=== PATIENT | male | born 1990 | race Caucasian/White ===

== ENCOUNTER 2023-02-09 03:46 | Emergency (ER) | payer SELFPAY ==
[2023-02-09] MEDS ORDERED: NA CHLORIDE 0.9% 1,000 ML ONE ×2 (04:09→04:15)
[2023-02-09] MEDS ORDERED: MORPHINE 4 MG/ML SYR ONE ×2 (04:14→05:48)
[2023-02-09] MEDS ORDERED: LORazepam 2 MG/ML VIAL ONE (04:14)
[2023-02-09] MEDS ORDERED: ONDANSETRON 4 MG/2 ML VIAL ONE (04:14)
[2023-02-09] MEDS ORDERED: KETOROLAC 30 MG/ML INJ ONE (04:14)
[2023-02-09 04:37] LABS: Hematocrit 46.1 % (39.6-49.0); Lymphocytes % 21.5 % (15.3-44.8); MCV 95.7 fL (80-100); MPV 8.4 fL (7.6-11.3); RBC Red Blood Cell Count 4.82 M/uL (4.33-5.43)
[2023-02-09 04:51] LABS: Albumin 3.9 g/dL (3.4-5.0); Bilirubin Total 0.4 mg/dL (0.2-1.0); Potassium 3.4 mEq/L (3.5-5.1); Protein, Total 7.6 g/dL (6.4-8.2)
[2023-02-09] MEDS ORDERED: METOCLOPRAMIDE 10 MG/2mL INJ ONE (05:48)
[2023-02-09] MEDS ORDERED: NA CHLORIDE 0.9% 50 ML ONE (05:49)
[2023-02-09 05:56] LABS: Barbiturates NEGATIVE (NEGATIVE); Benzodiazepines NEGATIVE (NEGATIVE); Cocaine NEGATIVE (NEGATIVE); METHAMPHETAM NEGATIVE (NEGATIVE); Methadone NEGATIVE (NEGATIVE); Opiates POSITIVE (NEGATIVE); Phencyclidine NEGATIVE (NEGATIVE); THC Cannibis NEGATIVE (NEGATIVE)
[2023-02-09 06:01] LABS: Urine Bacteria None Seen /HPF (<20); Urine Bilirubin NEGATIVE (Negative); Urine Blood Negative (Negative); Urine Clarity Clear (Clear); Urine Color Yellow (Yellow); Urine Glucose NEGATIVE (Negative); Urine Mucus Slight /HPF (None Seen); Urine Protein TRACE (Negative); Urine RBC <5 /HPF (None Seen); Urine Urobilinogen Normal (Normal)
--- NOTE | 2023-02-09 06:02 | EDPHYS ---
Physician Documentation [facility] Name: Keely Marinelli Age: 32 yrs Sex: Male : 1990 Arrival Date: 02/09/2023 Time: 03:46 Bed 6 Private MD: ED Physician Thang Shea HPI: 02/09 03:52 This 32 yrs old Male presents to ER via Unassigned with complaints of sp4 Abdominal Pain, Low Back Pain. 04:03 32-year-old male presents with moderate to severe epigastric abdominal pain starting sp4 acutely at 11 PM and intensifying since then. Reported 1 episode of vomiting at home. Patient went to the [place] [facility] where his urine was tested but not much else was done based on the patient's report. Patient presents here with a worsening epigastric abdominal pain and nausea. Patient is in moderate distress on arrival. . Historical: - Allergies: 04:04 No Known Allergies; vc1 - Home Meds: 04:04 None [Active]; vc1 - PMHx: 04:04 None; vc1 - PSHx: 04:04 None; vc1 - Immunization history:: Client reports receiving the Robert \T\ Robert single-dose vaccine. - Social history:: Smoking status: Patient reports the use of cigarette tobacco products, smokes one pack cigarettes per day. - Family history:: not pertinent. ROS: 04:03 Constitutional: Negative for fever, chills, and weight loss, Eyes: Negative for injury, sp4 pain, redness, and discharge, ENT: Negative for injury, pain, and discharge, Abdomen/GI: Positive for abdominal pain, epigastric pain, nausea and vomiting. Negative for diarrhea or constipation. 04:03 All other systems are negative. Exam: 04:03 Constitutional: This is a well developed, well nourished patient who is awake, alert, sp4 patient is in moderate distress and uncomfortable secondary to pain. Head/Face: Normocephalic, atraumatic. Eyes: Pupils equal round and reactive to light, extra-ocular motions intact. Lids and lashes normal. Conjunctiva and sclera are not injected. Cornea within normal limits. Periorbital areas with no swelling, redness, or edema. ENT: Nares patent. No nasal discharge, no septal abnormalities noted. Tympanic membranes are normal and external auditory canals are clear. Oropharynx with no redness, swelling, or masses, exudates, or evidence of obstruction, uvula midline. Mucous membranes moist. Neck: Trachea midline, no thyromegaly or masses palpated, and no cervical lymphadenopathy. Supple, full range of motion without nuchal rigidity, or vertebral point tenderness. Chest/axilla: Normal chest wall appearance and motion. Nontender with no deformity. No lesions are appreciated. Cardiovascular: Regular rate and rhythm with a normal S1 and S2. No gallops, murmurs, or rubs. Normal PMI, no JVD. No pulse deficits. Respiratory: Lungs have equal breath sounds bilaterally, clear to auscultation and percussion. No rales, rhonchi or wheezes noted. No increased work of breathing, no retractions or nasal flaring. Abdomen/GI: Soft, moderate abdominal tenderness mid epigastric location, diffuse abdominal discomfort to palpation, positive rebound tenderness, hypoactive bowel sounds. No distention or rigidity Back: No spinal tenderness. No costovertebral tenderness. Male : Normal genitalia with no discharge or lesions. Skin: Warm, dry with normal turgor. Normal color with no rashes, no lesions, and no evidence of cellulitis. MS/ Extremity: Pulses equal, no cyanosis. Neurovascular intact. Full, normal range of motion. Neuro: Awake and alert, GCS 15, oriented to person, place, time, and situation. Cranial nerves II-XII grossly intact. Motor strength 5/5 in all extremities. Sensory grossly intact. Psych: Awake, alert, with orientation to person, place and time. Behavior, mood, and affect are within normal limits Vital Signs: 03:55 BP 130 / 88; Pulse 66; Resp 19; Temp 97.6; Pulse Ox 100% on R/A; Weight 90.72 kg (R); 5 Height 5 ft. 11 in. (R); Pain 9/10; 05:32 Pulse 86; Resp 16; Pulse Ox 99% on R/A; kd3 06:12 BP 118 / 74; Pulse 85; Resp 19; Pulse Ox 100% on R/A; kd3 03:55 Body Mass Index 27.89 (90.72 kg, 180.34 cm) [facility] [place] 03:55 Pain Scale: Adult [facility] [place] MDM: 03:54 Patient medically screened. sp4 04:03 Differential diagnosis: arthritis, strain, UTI. Data reviewed: vital signs, nurses sp4 notes, lab test result(s), CBC, electrolytes, hepatic panel, urinalysis, urine drug screen, radiologic studies, CT scan. 05:53 ED course: CT abdomen / pelvis - ABDOMEN: Liver: Unremarkable. No mass. Gallbladder and sp4 bile ducts: Cholelithiasis. No ductal dilation. Pancreas: Unremarkable. No mass. No ductal dilation. Spleen: Mild splenomegaly. Adrenals: Unremarkable. No mass. Kidneys and ureters: Unremarkable. No solid mass. No hydronephrosis. Stomach and bowel: Unremarkable. No obstruction. No mucosal thickening. PELVIS: Appendix: No findings to suggest acute appendicitis. Bladder: Unremarkable. Reproductive: Unremarkable as visualized. ABDOMEN and PELVIS: Intraperitoneal space: Unremarkable. No free air. No significant fluid collection. Bones/joints: No acute fracture. No dislocation. Soft tissues: Unremarkable. Vasculature: Unremarkable. No abdominal aortic aneurysm. Lymph nodes: Unremarkable. No enlarged lymph nodes. IMPRESSION: Cholelithiasis.. ED course: RUQ sonogram, CLINICAL HISTORY: RUQ pain COMPARISON: None. TECHNIQUE: US ABDOMEN LIMITED 02/09/2023 4:10 AM CDT FINDINGS: Gallbladder is normally distended containing a large gallstone. There is no wall thickening or pericholecystic fluid. IMPRESSION: Cholelithiasis. 06:06 Consideration of Admission/Observation Escalation of care including sp4 admission/observation considered. ED course: Patient is have not cholelithiasis based on ultrasound and a CAT scan without signs of cholecystitis. Patient has improved after medications. Patient is stable for discharge home with as needed medications for pain and nausea. Advised to schedule general surgery follow-up this week for evaluation for cholecystectomy. . 02/09 03:53 Order name: CBC with Diff; Complete Time: 05:06 sp4 02/09 03:53 Order name: CMP; Complete Time: 05:06 sp4 02/09 03:53 Order name: Lipase; Complete Time: 05:06 4 02/09 03:53 Order name: Urinalysis w/ reflexes; Complete Time: 06:06 sp4 02/09 03:53 Order name: Urine Drug Screen; Complete Time: 06:06 4 02/09 04:02 Order name: CT Abd/Pelvis - IV Contrast Only sp4 02/09 04:10 Order name: US Abdomen Limited sp4 02/09 03:53 Order name: IV Saline Lock; Complete Time: 04:14 sp4 02/09 03:53 Order name: Labs collected and sent; Complete Time: 04:14 sp4 Administered Medications: 04:13 Drug: Ondansetron IVP 4 mg Route: IVP; Site: right antecubital; kd3 06:13 Follow up: Response: No adverse reaction; Pain is decreased kd3 04:13 Drug: morphine IVP or IV 4 mg Route: IVP; Infused Over: 4 mins; Site: right antecubital;kd3 06:13 Follow up: Response: No adverse reaction; Pain is decreased kd3 04:13 Drug: NS 0.9% IV 1000 ml Route: IV; Rate: 1 bolus; Site: right antecubital; kd3 06:13 Follow up: IV Status: Completed infusion; IV Intake: 1000ml kd3 04:14 Drug: NS 0.9% IV 1000 ml Route: IV; Rate: 1 bolus; Site: right antecubital; kd3 06:13 Follow up: IV Status: Completed infusion; IV Intake: 1000ml kd3 04:14 Drug: Ketorolac IVP 30 mg Route: IVP; Site: right antecubital; kd3 06:13 Follow up: Response: No adverse reaction kd3 04:14 Drug: Ativan IVP 1 mg Route: IVP; Site: right antecubital; kd3 06:13 Follow up: Response: No adverse reaction kd3 05:45 Drug: morphine IVP or IV 4 mg Route: IVP; Infused Over: 4 mins; Site: right antecubital;kd3 06:13 Follow up: Response: No adverse reaction; Pain is decreased kd3 05:46 Drug: metoCLOPramide IVP 10 mg Route: IVP; Site: right antecubital; kd3 06:13 Follow up: Response: No adverse reaction; Nausea is decreased kd3 Disposition Summary: 02/09/23 06:01 Discharge Ordered Location: Home sp4 Problem: new sp4 Symptoms: have improved sp4 Condition: Stable sp4 Diagnosis - Other cholelithiasis without obstruction sp4 - Other specified diseases of biliary tract sp4 - Biliary colic sp4 Followup: sp4 - With: Fransisco Yancey MD - When: 5 - 6 days - Reason: Recheck today's complaints Discharge Instructions: - Discharge Summary Sheet sp4 - Cholelithiasis sp4 Forms: - Patient Portal Instructions sp4 Prescriptions: - naproxen 250 mg Oral tablet - take 2 tablet by ORAL route every 12 hours PRN pain; 30 tablet; Refills: 0, sp4 Product Selection Permitted - ondansetron 4 mg Oral Tablet,disintegrating - take 1 tablet by ORAL route every 6 hours for 10 days PRN nausea; 30 tablet; sp4 Refills: 0, Product Selection Permitted Signatures: Dispatcher [employer] Nkechi Boateng RN RN kd3 Melissa Mathias RN RN vc1 Thang Shea MD MD sp4
--- NOTE | 2023-02-09 06:02 | ER ---
Nurse's Notes [facility] Name: Keely Marinelli Age: 32 yrs Sex: Male : 1990 Arrival Date: 02/09/2023 Time: 03:46 Bed 6 Private MD: Diagnosis: Other cholelithiasis without obstruction;Other specified diseases of biliary tract;Biliary colic Presentation: 02/09 04:03 Chief complaint: Patient states: I started having really bad pain a little before vc1 eleven last night. I went to [facility] but all they did was check my urine. Coronavirus screen: Vaccine status: Patient reports receiving the 1st dose of the Covid vaccine. Client denies travel out of the [place] in the last 14 days. At this time, the client does not indicate any symptoms associated with coronavirus-19. Ebola Screen: Patient negative for fever greater than or equal to 101.5 degrees Fahrenheit, and additional compatible Ebola Virus Disease symptoms Patient denies exposure to infectious person. Patient denies travel to an Ebola-affected area in the 21 days before illness onset. No symptoms or risks identified at this time. Initial Sepsis Screen: Does the patient meet any 2 criteria? No. Patient's initial sepsis screen is negative. Does the patient have a suspected source of infection? No. Patient's initial sepsis screen is negative. Risk Assessment: Do you want to hurt yourself or someone else? Patient reports no desire to harm self or others. Onset of symptoms was February 08, 2023 at 23:00. 04:03 Method Of Arrival: Wheelchair vc1 04:03 Acuity: DIPTI 3 vc1 Triage Assessment: 04:06 General: Appears distressed, uncomfortable, Behavior is cooperative, anxious. Pain: vc1 Complains of pain in epigastric area Pain radiates to mid back area Pain currently is 10 out of 10 on a pain scale. Quality of pain is described as sharp, Pain began suddenly, around 11 pm. EENT: No deficits noted. No signs and/or symptoms were reported regarding the EENT system. Neuro: Level of Consciousness is awake, alert, obeys commands, Oriented to person, place, time, situation, Appropriate for age. Cardiovascular: No deficits noted. Respiratory: Airway is patent Respiratory effort is even, unlabored, Respiratory pattern is regular, symmetrical. GI: Abdomen is flat, non-distended, Reports epigastric pain, nausea, vomiting. : No deficits noted. No signs and/or symptoms were reported regarding the genitourinary system. Derm: No deficits noted. No signs and/or symptoms reported regarding the dermatologic system. Musculoskeletal: No deficits noted. No signs and/or symptoms reported regarding the musculoskeletal system. Historical: - Allergies: 04:04 No Known Allergies; vc1 - Home Meds: 04:04 None [Active]; vc1 - PMHx: 04:04 None; vc1 - PSHx: 04:04 None; vc1 - Immunization history:: Client reports receiving the Robert \T\ Robert single-dose vaccine. - Social history:: Smoking status: Patient reports the use of cigarette tobacco products, smokes one pack cigarettes per day. - Family history:: not pertinent. Screenin:11 [facility] ED Fall Risk Assessment (Adult) History of falling in the last 3 months, vc1 including since admission No falls in past 3 months (0 pts) Confusion or Disorientation No (0 pts) Intoxicated or Sedated No (0 pts) Impaired Gait No (0 pts) Mobility Assist Device Used No (0 pt) Altered Elimination No (0 pt) Score/Fall Risk Level 0 - 2 = Low Risk Oriented to surroundings, Maintained a safe environment, Educated pt \T\ family on fall prevention, incl call for assistance when getting out of bed. Abuse screen: Denies threats or abuse. Nutritional screening: No deficits noted. Tuberculosis screening: No symptoms or risk factors identified. Assessment: 04:26 General: Appears uncomfortable, Behavior is calm, cooperative. Pain: Complains of pain kd3 in mid back area and abdomen. Neuro: Level of Consciousness is awake, alert, obeys commands, Oriented to person, place, time, situation. Cardiovascular: Patient's skin is warm and dry. Respiratory: Airway Trachea midline Respiratory effort is even, unlabored, Respiratory pattern is regular, symmetrical. 04:27 GI: Abdomen is tender to palpation in epigastric area. kd3 06:12 GI: Bowel sounds present X 4 quads. kd3 Vital Signs: 03:55 BP 130 / 88; Pulse 66; Resp 19; Temp 97.6; Pulse Ox 100% on R/A; Weight 90.72 kg (R); mc5 Height 5 ft. 11 in. (R); Pain 9/10; 05:32 Pulse 86; Resp 16; Pulse Ox 99% on R/A; kd3 06:12 BP 118 / 74; Pulse 85; Resp 19; Pulse Ox 100% on R/A; kd3 03:55 Body Mass Index 27.89 (90.72 kg, 180.34 cm) 5 03:55 Pain Scale: Adult 5 ED Course: 03:48 Patient arrived in ED. jj6 03:52 Thang Shea MD is Attending Physician. sp4 03:58 Nkechi Morris, CHARLA is Primary Nurse. kd3 04:04 Triage completed. vc1 04:10 Arm band placed on left wrist. vc1 04:12 Patient has correct armband on for positive identification. Bed in low position. Call vc1 light in reach. Pulse ox on. NIBP on. 04:14 CBC with Diff Sent. kd3 04:14 CMP Sent. kd3 04:14 Lipase Sent. kd3 04:27 Provided Education on: . kd3 04:40 US Abdomen Limited In Process Unspecified. EDMS 05:18 CT Abd/Pelvis - IV Contrast Only In Process Unspecified. EDMS 06:00 Fransisco Yancey MD is Referral Physician. sp4 06:12 No provider procedures requiring assistance completed. IV discontinued, intact, kd3 bleeding controlled, No redness/swelling at site. Pressure dressing applied. Administered Medications: 04:13 Drug: Ondansetron IVP 4 mg Route: IVP; Site: right antecubital; kd3 06:13 Follow up: Response: No adverse reaction; Pain is decreased kd3 04:13 Drug: morphine IVP or IV 4 mg Route: IVP; Infused Over: 4 mins; Site: right antecubital;kd3 06:13 Follow up: Response: No adverse reaction; Pain is decreased kd3 04:13 Drug: NS 0.9% IV 1000 ml Route: IV; Rate: 1 bolus; Site: right antecubital; kd3 06:13 Follow up: IV Status: Completed infusion; IV Intake: 1000ml kd3 04:14 Drug: NS 0.9% IV 1000 ml Route: IV; Rate: 1 bolus; Site: right antecubital; kd3 06:13 Follow up: IV Status: Completed infusion; IV Intake: 1000ml kd3 04:14 Drug: Ketorolac IVP 30 mg Route: IVP; Site: right antecubital; kd3 06:13 Follow up: Response: No adverse reaction kd3 04:14 Drug: Ativan IVP 1 mg Route: IVP; Site: right antecubital; kd3 06:13 Follow up: Response: No adverse reaction kd3 05:45 Drug: morphine IVP or IV 4 mg Route: IVP; Infused Over: 4 mins; Site: right antecubital;kd3 06:13 Follow up: Response: No adverse reaction; Pain is decreased kd3 05:46 Drug: metoCLOPramide IVP 10 mg Route: IVP; Site: right antecubital; kd3 06:13 Follow up: Response: No adverse reaction; Nausea is decreased kd3 Medication: 04:13 VIS not applicable for this client. vc1 Intake: 06:13 IV: 1000ml; Total: 1000ml. kd3 06:13 IV: 1000ml; Total: 2000ml. kd3 Outcome: 06:01 Discharge ordered by . juan david 06:12 Discharged to home ambulatory. kd3 06:12 Condition: stable 06:12 Discharge instructions given to patient, family, Instructed on discharge instructions, follow up and referral plans. Demonstrated understanding of instructions, follow-up care, medications, Prescriptions given X 2. 06:14 Patient left the ED. kd3 Signatures: Dispatcher [employer] EDMS Jovanna Rose jj6 Nkechi Morris RN RN kd3 Melissa Mathias RN RN vc1 Thang Shea MD MD sp4 Annie Carolina 5 Corrections: (The following items were deleted from the chart) 06:12 06:12 BP 118 / 51; Pulse 85bpm; Resp 19bpm; Pulse Ox 100% RA; kd3 kd3
[2023-02-09 06:04] LABS: Specific Gravity > 1.035 (1.005-1.030)
[2023-02-09 06:20] VITALS: TEMP 97.6
[2023-02-09 06:22] VITALS: BP 118/74; O2SAT 100
--- NOTE | 2023-02-09 10:16 | RAD REPORT ---
EXAM DESCRIPTION: CT - Abdomen Pelvis W Contrast - 02/09/2023 6:30 am CLINICAL HISTORY: The patient is 32 years old and is Male; ABD PAIN TECHNIQUE: Axial computed tomography images of the abdomen and pelvis with intravenous contrast. S agittal and coronal reformatted images were created and reviewed. This CT exam was performed using one or more of the following dose reduction techniques: automated exposure control, adjustment of t he mA and/or kV according to patient size, and/or use of iterative reconstruction technique. COMPARISON: No relevant prior studies available. FINDINGS: Lung bases: Unremarkable. No mass. No consolidation. ABDOMEN: Liver: Unremarkable. No mass. Gallbladder and bile ducts: Cholelithiasis. No ductal dilation. Pancreas: Unremarkable. No mass. No ductal dilation. Spleen: Mild splenomegaly. Adrenals: Unremarkable. No mass. Kidneys and ureters: Unremarkable. No solid mass. No hydronephrosis. Stomach and bowel: Unremarkable. No obstruction. No mucosal thickening. PELVIS: Appendix: No findings to suggest acute appendicitis. Bladder: Unremarkable. Reproductive: Unremarkable as visualized. ABDOMEN and PELVIS: Intraperitoneal space: Unremarkable. No free air. No significant fluid collection. Bones/joints: No acute fracture. No dislocation. Soft tissues: Unremarkable. Vasculature: Unremarkable. No abdominal aortic aneurysm. Lymph nodes: Unremarkable. No enlarged lymph nodes. IMPRESSION: Cholelithiasis. Electronically signed by: Domingo Cho MD 02/09/2023 5:34 AM CDT Due to temporary technical issues with the PACS/Fluency reporting system, reports are being signed by the in house radiologist without review as a courtesy to ensure prompt reporting. The interpreting r adiologist is fully responsible for the content of the report.
--- NOTE | 2023-02-09 10:18 | RAD REPORT ---
EXAM DESCRIPTION: US - Abdomen Exam Limited - 02/09/2023 4:39 am CLINICAL HISTORY: RUQ pain COMPARISON: None. TECHNIQUE: US ABDOMEN LIMITED 02/09/2023 4:10 AM CDT FINDINGS: Gallbladder is normally distended containing a large gallstone. There is no wall thickenin g or pericholecystic fluid. IMPRESSION: Cholelithiasis. Electronically signed by: Alessandro Silva MD 02/09/2023 5:07 AM CDT Due to temporary technical issues with the PACS/Fluency reporting system, reports are being signed by the in house radiologist without review as a courtesy to ensure prompt reporting. The interpreting r adiologist is fully responsible for the content of the report.
== END 2023-02-09 06:14 | disposition home or self-care (01) ==
LOC: ER 03:46
DX: K80.80 Other cholelithiasis without obstruction (principal); K80.50 Calculus of bile duct without cholangitis or cholecystitis without obstruction
CPT/HCPCS: 36415; 74177; 76705; 80053; 80307; 81001; 83690; 85025; 96361; 96374; 96375; 99284; J2405; J2765; J7030; Q9967

== ENCOUNTER 2023-02-11 09:09 | Day surgery (SDC) | payer SELFPAY ==
[2023-02-11] MEDS ORDERED: Ringers Lactate 1,000 ML IV ONE ×2 (09:36→13:27)
[2023-02-11] MEDS ORDERED: CEFOXITIN SODIUM 2 GM/VIAL ONE (09:36)
[2023-02-11] MEDS ORDERED: BUPIVACAINE 0.25% PF 30 ML VIAL ONE (10:52)
[2023-02-11] MEDS ORDERED: propofoL 200 MG/20 ML VIAL IV ONE (11:35)
[2023-02-11] MEDS ORDERED: LIDOCAINE 2% MPF 5 ML VIAL ONE ×2 (11:35→13:12)
[2023-02-11] MEDS ORDERED: ROCURONIUM 50 MG/5 ML VIAL IV ONE (11:35)
[2023-02-11] MEDS ORDERED: MIDAZOLAM HCL 2 MG/2 ML INJ ONE (11:36)
[2023-02-11] MEDS ORDERED: HYDROMORPHONE HCL 1 MG/ML INJ ONE (11:47)
[2023-02-11] MEDS ORDERED: FENTANYL CITR 100 MCG/2 ML ONE (12:19)
[2023-02-11] MEDS ORDERED: dexAMETHasone 10 MG/ML VIAL ONE (12:19)
[2023-02-11] MEDS ORDERED: KETAMINE HCL IN 0.9 % NACL 50 MG/5 ML SYRINGE IV ONE (12:20)
[2023-02-11] MEDS ORDERED: ONDANSETRON 4 MG/2 ML VIAL ONE (12:20)
[2023-02-11] MEDS ORDERED: GLYCOPYRROLATE 0.2 MG/ML SYR ONE (12:21)
[2023-02-11] MEDS ORDERED: NEOSTIGMINE 1 MG/ML -10 ML VIAL ONE (12:29)
--- NOTE | 2023-02-11 12:54 | P.OP ---
Preoperative diagnosis: Cholecystitis with Cholelithiasis Postoperative diagnosis: Cholecystitis with Cholelithiasis Primary procedure: Laparoscopic Cholecystectomy Anesthesia: GETA + Local Estimated blood loss: <20cc Specimen: Gallbladder Findings: Cholecystitis, Adhesions, Accessory Cystic Artery Complications: None Transferred to: Recovery Room Condition: Good
[2023-02-11] MEDS: HYDROMORPHONE HCL 1 MG/ML INJ ONE ×2 (13:15→13:20)
[2023-02-11] MEDS: FENTANYL CITR 100 MCG/2 ML ONE ×4 (13:20→13:35)
[2023-02-11] MEDS ORDERED: KETOROLAC 30 MG/ML INJ ONE (13:23)
[2023-02-11] MEDS: MEPERIDINE HCL 25 MG/ML SYR ONE ×2 (13:25→13:30)
[2023-02-11] MEDS ORDERED: SUCCINYLCHOLINE 20 MG/ML (10 ML) IV ONE (13:31)
[2023-02-11] MEDS ORDERED: PROMETHAZINE INJ 25 MG/ML AMP ONE (13:36)
[2023-02-11 14:16] VITALS: BP 148/93; TEMP 97; O2SAT 16
[2023-02-11] MEDS ORDERED: HYDROCODONE/APAP 10/325 TAB ONE (14:31)
--- NOTE | 2023-02-11 17:37 | EKG ---
Test Date: 2023-02-10 Test Time: 12:47:36 Formulator: KIM MEASUREMENT RESULTS: Intervals: Rate: 64 MT: 114 QRSD: 84 QT: 384 QTc: 396 [place]: P: 61 MT: 114 QRS: 56 T: 55 INTERPRETIVE STATEMENTS: Normal sinus rhythm Normal ECG No previous ECG available for comparison Electronically Signed On 02-11-23 17:33:49 CDT by Bharath Rivas
--- NOTE | 2023-02-11 18:24 | OP ---
Date of Procedure: 02/11/2023 Surgeon: Fransisco Yancey MD, Preoperative Diagnosis: Cholecystitis with cholelithiasis. Postoperative Diagnosis: Cholecystitis with cholelithiasis. Procedure Performed: Laparoscopic cholecystectomy with ICG cholangiography (Indocyanine green cholan giography). Anesthesia: General endotracheal plus local with 0.25% Marcaine. Estimated Blood Loss: Less than 20 cc. Specimen: Gallbladder. Findings: 1.Cholecystitis noted with significant adhesions from the omentum to the anterior surface of the gal lbladder near the Patrice pouch. 2.Distended large gallbladder. 3.Short cystic duct. 4.Accessory cystic artery. Complications: None. Disposition: The patient was transferred to the recovery room in good condition. Procedure In Detail: After informed consent was obtained, the patient was brought to the operating r oom, prepped and draped in the usual sterile fashion after adequate anesthesia was achieved. I anest hetized an area of the supraumbilical skin, made an incision, and a 5 mm 0-degree optical trocar was introduced into the abdomen without evidence of complication. Insufflation was obtained to 15 mmHg a t this time. There was no injury to vital structure upon entry into the abdomen. Two additional tro cars were placed, 1 in the epigastrium and 1 in the right upper quadrant. Both of these were similar ly anesthetized, sharply incised, and a 5 mm trocar was placed under direct visualization without margaux dence of complication. The umbilical trocar was then upsized to a 12 mm under direct visualization w ithout evidence of complication. The patient was positioned head up right-side up position. Ratchet ed grasper was used to grasp the patient's gallbladder, placed toward the right shoulder. Dissection was continued down to remove the omentum off the anterior surface of the gallbladder, which was foun d to be thick, fibrous adhesions, particularly down near the Patrice pouch precluding an initial vie w of the cystic duct and cystic artery. Meticulous dissection was performed in this area using a com bination of blunt dissection as well as electrocautery until 3 structures were identified. After ske letonizing and 3 structure identified, I traced these back and found to be a cystic duct. Indocyanin e green cholangiography confirmed the cystic duct and common duct junction at this point and found to be a short cystic duct with adequate landing position for the clips. After skeletonization of the s tructures, I then looked at the 2 other structures that were found to be a cystic artery and a small accessory branch going to the more medial superior aspect of the gallbladder consistent with an acces reymundo branch. I skeletonized these structures and placed double titanium clips on both the proximal s terry of the cystic duct and cystic artery, ligated these structure, and then I addressed the additiona l accessory cystic artery. I encircled this area and it was found to be quite thin and friable and t raction caused the vessel to bleed somewhat. A clip was placed on this with good hemostasis with min imal blood loss at this point, and good hemostasis was achieved at this point. I then removed the ga llbladder from the hepatic fossa using electrocautery without evidence of complication. The gallblad nannette was then placed in an EndoCatch bag, removed through the umbilical trocar site and sent off for p athologic examination. I then copiously irrigated the abdomen and inspected the clips and found to b e in good position at this point without additional hemostatic maneuvers required to the clips; howev er, I did have to fulgurate the superior lateral aspect of the hepatic fossa with some minimal oozing was appreciated at the end of the procedure; however, hemostasis was good and achieved. I irrigated the area multiple times with 1.5 L of saline at this point and inspected the clips at the end of the procedure. Good hemostasis was achieved without additional hemostatic maneuvers required. After al l effluent was suctioned out, the patient was positioned back in neutral position. Remaining effluen t was suctioned out at this point. I then inspected the clips and found to be in good anatomic posit ion. Again, I packed the omentum up in this area. I then closed the umbilical trocar site using a Adama abdulSwetha suture passer with 0 Vicryl in a running fashion with good approximation of tissues. The abdomen was completely desufflated under direct visualization without evidence of complication. All remaining trocars were removed. All skin incisions were copiously irrigated and closed with a 4- 0 Monocryl in a running fashion. Dermabond placed over top. The patient tolerated the procedure wel l without evidence of complication and transferred to PACU in good condition. All counts were correc t at the end of the case. TK/MODL Voice ID: [id number] Report ID: [id number]
== END 2023-02-11 14:50 | disposition home or self-care (01) ==
LOC: OR 09:09
PROVIDERS: ATTEND Surgery
PROC: BF50200 Other Imaging of Bile Ducts using Fluorescing Agent, Indocyanine Green Dye, Intraoperative (ICD-10-PCS; 2023-02-11)
PROC: 0FT44ZZ Resection of Gallbladder, Percutaneous Endoscopic Approach (ICD-10-PCS; principal; 2023-02-11 12:00)
DX: K80.10 Calculus of gallbladder with chronic cholecystitis without obstruction (principal); F17.210 Nicotine dependence, cigarettes, uncomplicated
CPT/HCPCS: 88304; 93005; J0694; J1100; J1170; J2001; J2175; J2250; J2405; J2550; J2704; J2710; J3010; J7120